=== PATIENT | male | born 1960 | race Hispanic/Latino ===

== ENCOUNTER 2017-07-12 19:33 | Emergency (ER) | payer OTHER ==
[2017-07-12 19:33] VITALS: BMI 30.8
[2017-07-12 19:57] VITALS: TEMP 98.3
[2017-07-12] MEDS ORDERED: Rabies Immune Globulin 150 INTLU/ML VIAL IM ONE ×2 (20:37→21:00)
[2017-07-12] MEDS ORDERED: RABIES VACCINE 2.5 U PDR IM ONE (20:37)
[2017-07-12] MEDS ORDERED: TDAP Vaccine 0.5 mL Syr IM ONE (20:37)
--- NOTE | 2017-07-12 20:47 | ED PDOC ---
Arrival/HPI - General Historian: Patient - History of Present Illness Time/Duration: Prior to Arrival Symptom Onset: Sudden Symptom Course: Unchanged Quality: Throbbing Severity Level: Mild <Nathalia Hernandez - Last Filed: 07/12/17 21:52> <Anupam Botello - Last Filed: 07/12/17 21:58> - General Chief Complaint: Bite Time Seen by Provider: 07/12/17 20:15 - History of Present Illness Narrative History of Present Illness (Text): 07/12/17 20:44 57M w/PMH sig for hypertension evaluated post cat bite. Pt reports he feeds an outside cat, which is currently dying of unknown causes, pt tried to move cat with resulting bite to right hand. Pt reports tetanus vaccine over 10 yrs ago. Denies N/V/F/C, shortness of breath, chest pain, ab pain, other complaints. PMH: hypertension on lisinopril 5mg QD PSH: R levator muscle rupture and repair All: NKDA SH: Denies tobacco, ETOH, or illicit drug use PMD: Condo (Nathalia Hernandez) Associated Symptoms (Text): 07/12/17 20:47 none (Nathalia Hernandez) Past Medical History - Provider Review Nursing Documentation Reviewed: Yes - Infectious Disease Hx of Infectious Diseases: None - Tetanus Immunization Tetanus Immunization: Unknown - Cardiac Hx Hypertension: Yes (borderline) Hx Pacemaker: No - Neurological Hx Paralysis: No - HEENT Other/Comment: ptosis of right eyelid - Hematological/Oncological Hx Blood Transfusions: No Hx Blood Transfusion Reaction: No - Musculoskeletal/Rheumatological Hx Musculoskeletal Disorders: No Other/Comment: C3,4,5 herniation. - Psychiatric Hx Emotional Abuse: No Hx Physical Abuse: No Hx Substance Use: No - Surgical History Other/Comment: tonsillectomy - Anesthesia Hx Anesthesia Reactions: No Hx Malignant Hyperthermia: No - Suicidal Assessment Feels Threatened In Home Enviroment: No <Nathalia Hernandez - Last Filed: 07/12/17 21:52> Family/Social History - Physician Review Nursing Documentation Reviewed: Yes Family/Social History: No Known Family HX Smoking Status: Never Smoked Hx Alcohol Use: No (socially) Hx Substance Use: No Hx Substance Use Treatment: No <Nathalia Hernandez - Last Filed: 07/12/17 21:52> Allergies/Home Meds <Nathalia Hernandez - Last Filed: 07/12/17 21:52> <Anupam Botello - Last Filed: 07/12/17 21:58> Allergies/Adverse Reactions: Allergies No Known Allergies Allergy (Verified 09/18/16 17:44) Home Medications: Home Meds Medication Instructions Recorded Confirmed Naproxen [Naprosyn] 500 mg PO PRN PRN 02/19/13 09/18/16 Lisinopril [Zestril] 5 mg PO DAILY 09/18/16 09/18/16 Review of Systems - Physician Review All systems were reviewed & negative as marked: Yes - Review of Systems Constitutional: Normal Eyes: Normal ENT: Normal Respiratory: Normal Cardiovascular: Normal Gastrointestinal: Normal Musculoskeletal: Normal Skin: Other (puncture wounds over hypotenar eminence of right hand) Neurological: Normal <Nathalia Hernandez - Last Filed: 07/12/17 21:52> Physical Exam Vital Signs Reviewed: Yes Temperature: Afebrile Blood Pressure: Hypertensive Pulse: Regular Respiratory Rate: Normal Appearance: Positive for: Well-Appearing, Non-Toxic, Comfortable Pain Distress: None Mental Status: Positive for: Alert and Oriented X 3 - Systems Exam Head: Present: Atraumatic, Normocephalic Extroacular Muscles: Present: EOMI Conjunctiva: Present: Normal Mouth: Present: Moist Mucous Membranes Nose (External): Present: Atraumatic Neck: Present: Normal Range of Motion Respiratory/Chest: Present: Clear to Auscultation, Good Air Exchange. No: Respiratory Distress, Accessory Muscle Use Cardiovascular: Present: Regular Rate and Rhythm, Normal S1, S2. No: Murmurs Abdomen: Present: Normal Bowel Sounds. No: Tenderness, Distention, Peritoneal Signs Back: Present: Normal Inspection Upper Extremity: Present: Normal Inspection. No: Cyanosis, Edema Lower Extremity: Present: Normal Inspection. No: Edema Neurological: Present: GCS=15, CN II-XII Intact, Speech Normal Skin: Present: Warm, Dry, Normal Color, Other (right hypotenar eminiance with slight tenderness, 2 small puncture wounds and slight swelling). No: Rashes Psychiatric: Present: Alert, Oriented x 3, Normal Insight, Normal Concentration <Nathalia Hernandez - Last Filed: 07/12/17 21:52> Vital Signs Temp Pulse Resp BP Pulse Ox 07/12/17 19:33 98.3 F 64 16 132/91 H 97 Medical Decision Making <Nathalia Hernandez - Last Filed: 07/12/17 21:52> <Anupam Botello - Last Filed: 07/12/17 21:58> ED Course and Treatment: 07/12/17 20:49 Pt seen/evaluated, will give tetanus booster and rabies booster, immunoglobulin. (Nathalia Hernandez) 07/12/17 21:58 Pty. seen and evaluated with the bilingual medical receptionist.Agree with HPI,clinical findings and treatment plan (Anupam Botello) - Medication Orders Current Medication Orders: Discontinued Medications Amoxicillin/Clavulanate Potassium (Augmentin 875 Mg-125 Mg Tab) 1 tab PO STAT STA PRN Reason: Protocol Stop: 07/12/17 21:29 Last Admin: 07/12/17 21:57 Dose: 1 tab Rabies Immune Globulin (Imogam) 1,994 intlu IM .ONCE ONE Stop: 07/12/17 21:01 Last Admin: 07/12/17 21:29 Dose: 1,994 intlu IM Administration Charges Document 07/12/17 21:29 JO (Rec: 07/12/17 21:32 [id number]) Injection Site MAR Injection Site Right Vastus Lateralis Charges for Administration # of IM Administrations 5 MAR Immunization Data Document 07/12/17 21:29 JOL (Rec: 07/12/17 21:32 JO [id number]) Immunization Data Vaccine Lot Number [id number] Vaccine Expiration Date 04/29/19 Site Given Right Anterolateral Thigh Route Intramuscular Rabies Vaccine Human Diploid Cell (Rabavert Vaccine Inj) 2.5 u IM .ONCE ONE Stop: 07/12/17 20:38 Last Admin: 07/12/17 21:32 Dose: 2.5 u MAR Immunization Data Document 07/12/17 21:32 JOL (Rec: 07/12/17 21:33 JO [id number]) Immunization Data Vaccine Lot Number [id number] Vaccine Expiration Date 02/24/20 Tetanus/Reduced Diphtheria/Acell Pertussis (Boostrix Vaccine Inj) 0.5 ml IM .ONCE ONE Stop: 07/12/17 20:38 Last Admin: 07/12/17 21:33 Dose: 0.5 ml MAR Immunization Data Document 07/12/17 21:33 JOL (Rec: 07/12/17 21:33 [id number]) Immunization Data Vaccine Lot Number [id number] Vaccine Expiration Date 07/20/19 Site Given Left Deltoid - PA / HOMOGENIZER OPERATOR / Resident Statement / has reviewed & agrees with the documentation as recorded. / has examined the patient and agrees with the treatment plan. <Anupam Botello - Last Filed: 07/12/17 21:58> Disposition/Present on Arrival - Present on Arrival Any Indicators Present on Arrival: No History of DVT/PE: No History of Uncontrolled Diabetes: No Urinary Catheter: No History of Decub. Ulcer: No History Surgical Site Infection Following: Orthopedic Procedures - Disposition Have Diagnosis and Disposition been Completed?: Yes Disposition Time: 20:50 Patient Plan: Discharge <Nathalia Hernandez - Last Filed: 07/12/17 21:52> <Anupam Botello - Last Filed: 07/12/17 21:58> - Disposition Diagnosis: Cat bite of hand Disposition: HOME/ ROUTINE Patient Problems: Current Active Problems Problem Status Onset Cat bite of hand Acute Condition: STABLE Discharge Instructions (ExitCare): Animal Bite (ED) Additional Instructions: Please return for additional Rabies vaccine 3 days from now, 7 days from now, 13 days from now and 28 days from now. Prescriptions: Amoxicillin/Clavulanate [Augmentin 875 MG-125 MG] 1 tab PO BID #10 tab Referrals: Mark Rg MD [Primary Care Provider] - Follow up with primary Forms: [employer] (Indonesian)
[2017-07-12] MEDS ORDERED: Amoxicillin-Clav 875-125 mg Tab PO STA (21:28)
[2017-07-13 03:28] VITALS: BP 135/87; PULSE 68; RESP 18; O2SAT 99
== END 2017-07-12 21:58 | disposition home or self-care (01) ==
LOC: ED 19:33
DX: S61.451A Open bite of right hand, initial encounter (principal); W55.01XA Bitten by cat, initial encounter; Y93.K9 Activity, other involving animal care; Y92.89 Other specified places as the place of occurrence of the external cause; Z23 Encounter for immunization

== ENCOUNTER 2017-07-15 17:36 | Emergency (ER) | payer OTHER ==
[2017-07-15 17:43] VITALS: BMI 30.2
[2017-07-15 17:48] VITALS: BP 165/90; PULSE 56; RESP 18; TEMP 98.1; O2SAT 95
--- NOTE | 2017-07-15 17:48 | ED PDOC ---
Arrival/HPI - General Time Seen by Provider: 07/15/17 17:37 Historian: Patient - History of Present Illness Narrative History of Present Illness (Text): 07/15/17 17:43 57yr old male presents today for 2nd rabies vaccine. pt was bit by cat on right hand. denies pain/fever/chills. taking abx as prescribed. pt complaining of generalized bodyaches. Past Medical History - Provider Review Nursing Documentation Reviewed: Yes - Travel History Have you recently traveled outside [place] w/in the past 3 mons?: No - Infectious Disease Hx of Infectious Diseases: None - Tetanus Immunization Tetanus Immunization: Unknown - Cardiac Hx Hypertension: Yes (borderline) Hx Pacemaker: No - Neurological Hx Paralysis: No - HEENT Other/Comment: ptosis of right eyelid - Hematological/Oncological Hx Blood Transfusions: No Hx Blood Transfusion Reaction: No - Musculoskeletal/Rheumatological Hx Musculoskeletal Disorders: No Other/Comment: C3,4,5 herniation. - Psychiatric Hx Emotional Abuse: No Hx Physical Abuse: No Hx Substance Use: No - Surgical History Other/Comment: tonsillectomy - Anesthesia Hx Anesthesia Reactions: No Hx Malignant Hyperthermia: No - Suicidal Assessment Feels Threatened In Home Enviroment: No Family/Social History - Physician Review Nursing Documentation Reviewed: Yes Family/Social History: Unknown Family HX Smoking Status: Never Smoked Hx Alcohol Use: No (socially) Hx Substance Use: No Hx Substance Use Treatment: No Allergies/Home Meds Allergies/Adverse Reactions: Allergies No Known Allergies Allergy (Verified 07/15/17 17:43) Home Medications: Home Meds Medication Instructions Recorded Confirmed Lisinopril [Zestril] 5 mg PO DAILY 09/18/16 09/18/16 Review of Systems - Review of Systems Constitutional: absent: Fatigue, Fevers Respiratory: absent: SOB, Cough Cardiovascular: absent: Chest Pain, Palpitations Gastrointestinal: absent: Abdominal Pain Musculoskeletal: Other (bodyaches). absent: Arthralgias Skin: Other (cat bite) Physical Exam Vital Signs Reviewed: Yes Blood Pressure: Hypertensive Pulse: Regular Respiratory Rate: Normal Appearance: Positive for: Well-Appearing, Non-Toxic, Comfortable Pain Distress: None Mental Status: Positive for: Alert and Oriented X 3 - Systems Exam Head: Present: Atraumatic Respiratory/Chest: Present: Clear to Auscultation Cardiovascular: Present: Regular Rate and Rhythm Upper Extremity: Present: Normal ROM, NORMAL PULSES, Neurovascularly Intact, Capillary Refill < 2s, Other (3 small puncture wounds noted to the volar aspect of the hand at the thenar eminence; no erythema; no edema. no tenderness. ). No : Tenderness, Swelling, Erythema, Deformity Neurological: Present: GCS=15, Speech Normal Skin: Present: Warm, Dry Psychiatric: Present: Alert, Oriented x 3 Medical Decision Making ED Course and Treatment: 07/15/17 17:44 Patient is nontoxic well-appearing in no distress. Vital signs are stable. presenting for 2nd rabies vaccine. denies any complaints. no signs of infection. Patient was advised to keep the wound clean and dry, apply bacitracin twice daily, take antibiotics as prescribed and return immediately if symptoms worsen persist or if new symptoms develop. pt was advised to return on july 19 and july 26 f Impression: cat bite Continue antibiotics as prescribed Keep the wound clean and dry, apply bacitracin twice daily return on july 19 and july 26 for the remainder of your rabies vaccine schedule. Return immediately if symptoms worsen persist or if new symptoms develop: High fevers, increasing pain, increasing redness, swelling or if any other concerning symptoms develop. Disposition/Present on Arrival - Present on Arrival Any Indicators Present on Arrival: No History of DVT/PE: No History of Uncontrolled Diabetes: No Urinary Catheter: No History Surgical Site Infection Following: Orthopedic Procedures - Disposition Have Diagnosis and Disposition been Completed?: Yes Diagnosis: Cat bite, Rabies, need for prophylactic vaccination against Disposition: HOME/ ROUTINE Disposition Time: 17:49 Patient Plan: Discharge Patient Problems: Current Active Problems Problem Status Onset Cat bite Acute Rabies, need for prophylactic vaccination against Acute Condition: GOOD Discharge Instructions (ExitCare): Animal Bite (ED) Additional Instructions: Continue antibiotics as prescribed Keep the wound clean and dry, apply bacitracin twice daily return on july 19 and july 26 for the remainder of your rabies vaccine schedule. Return immediately if symptoms worsen persist or if new symptoms develop: High fevers, increasing pain, increasing redness, swelling or if any other concerning symptoms develop. Referrals: Mark Rg MD [Staff Provider] - Follow up with primary
[2017-07-15] MEDS ORDERED: RABIES VACCINE 2.5 U PDR IM ONE ×2 (17:53→18:30)
== END 2017-07-15 18:50 | disposition home or self-care (01) ==
LOC: ED 17:36
DX: S61.451D Open bite of right hand, subsequent encounter (principal); W55.01XD Bitten by cat, subsequent encounter; Z23 Encounter for immunization

== ENCOUNTER 2017-07-19 17:58 | Emergency (ER) | payer OTHER ==
[2017-07-19 17:59] VITALS: BMI 30.2
[2017-07-19 18:06] VITALS: BP 157/98; PULSE 68; RESP 16; TEMP 98.1; O2SAT 95
[2017-07-19] MEDS ORDERED: RABIES VACCINE 2.5 U PDR IM ONE (18:13)
--- NOTE | 2017-07-19 18:20 | ED PDOC ---
Arrival/HPI - General Chief Complaint: Rabies Vaccine Series Time Seen by Provider: 07/19/17 18:06 Historian: Patient - History of Present Illness Narrative History of Present Illness (Text): 07/19/17 18:20 57-year-old male presents today for his third rabies vaccine. Patient states he has completed his antibiotics. Patient denies pain fevers or chills. Patient states he is having intermittent body aches which have since improved from his last visit. Patient denies any pain at present time. No chest pain or shortness of breath. Past Medical History - Provider Review Nursing Documentation Reviewed: Yes - Travel History Have you recently traveled outside [place] w/in the past 3 mons?: No - Infectious Disease Hx of Infectious Diseases: None - Tetanus Immunization Tetanus Immunization: Unknown - Cardiac Hx Cardiac Disorders: Yes Hx Hypertension: Yes (borderline) Hx Pacemaker: No - Pulmonary Hx Respiratory Disorders: No - Neurological Hx Alzheimer's Disease: No Hx Paralysis: No - HEENT Hx HEENT Disorder: Yes Other/Comment: ptosis of right eyelid - Renal Hx Renal Disorder: No - Endocrine/Metabolic Hx Endocrine Disorders: No - Hematological/Oncological Hx Blood Transfusions: No Hx Blood Transfusion Reaction: No - Integumentary Hx Dermatological Disorder: No - Musculoskeletal/Rheumatological Hx Musculoskeletal Disorders: Yes Other/Comment: C3,4,5 herniation. - Gastrointestinal Hx Gastrointestinal Disorders: No - Genitourinary/Gynecological Hx Genitourinary Disorders: No - Psychiatric Hx Psychophysiologic Disorder: No Hx Emotional Abuse: No Hx Physical Abuse: No Hx Substance Use: No - Surgical History Hx Eye Surgery: Yes Other/Comment: tonsillectomy - Anesthesia Hx Anesthesia Reactions: No Hx Malignant Hyperthermia: No - Suicidal Assessment Feels Threatened In Home Enviroment: No Family/Social History - Physician Review Nursing Documentation Reviewed: Yes Family/Social History: Unknown Family HX Smoking Status: Never Smoked Hx Alcohol Use: No (socially) Hx Substance Use: No Hx Substance Use Treatment: No Allergies/Home Meds Allergies/Adverse Reactions: Allergies No Known Allergies Allergy (Verified 07/15/17 17:43) Home Medications: Home Meds Medication Instructions Recorded Confirmed Lisinopril [Zestril] 5 mg PO DAILY 09/18/16 07/19/17 Review of Systems - Review of Systems Constitutional: Other (bodyaches). absent: Fatigue, Fevers Respiratory: absent: SOB, Cough Cardiovascular: absent: Chest Pain, Palpitations Gastrointestinal: absent: Abdominal Pain, Nausea, Vomiting Musculoskeletal: absent: Arthralgias, Back Pain, Neck Pain Skin: absent: Rash, Pruritis Neurological: absent: Headache, Dizziness Physical Exam Vital Signs Reviewed: Yes Vital Signs Temp Pulse Resp BP Pulse Ox 07/19/17 18:06 98.1 F 68 16 157/98 H 95 Temperature: Afebrile Blood Pressure: Hypertensive Pulse: Regular Respiratory Rate: Normal Appearance: Positive for: Well-Appearing, Non-Toxic, Comfortable Pain Distress: None Mental Status: Positive for: Alert and Oriented X 3 - Systems Exam Head: Present: Atraumatic Respiratory/Chest: Present: Clear to Auscultation Cardiovascular: Present: Regular Rate and Rhythm Upper Extremity: Present: Normal ROM, Neurovascularly Intact, Capillary Refill < 2s. No: Tenderness, Swelling, Erythema Skin: Present: Warm, Dry Psychiatric: Present: Alert, Oriented x 3 Medical Decision Making ED Course and Treatment: 07/19/17 18:16 Patient is nontoxic well-appearing in no distress. Vital signs are stable. presenting for 3rd rabies vaccine. denies any complaints at present time. no signs of infection. Patient was advised to keep the wound clean and dry, apply bacitracin twice daily, take antibiotics as prescribed and return immediately if symptoms worsen persist or if new symptoms develop. pt was advised to return on july 26 for the completion of his rabies vaccine series. Impression: cat bite Keep the wound clean and dry, apply bacitracin twice daily return on july 26 for the remainder of your rabies vaccine schedule. Return immediately if symptoms worsen persist or if new symptoms develop: High fevers, increasing pain, increasing redness, swelling or if any other concerning symptoms develop. - Medication Orders Current Medication Orders: Rabies Vaccine Human Diploid Cell (Rabavert Vaccine Inj) 2.5 u IM .ONCE ONE Stop: 07/19/17 18:14 Disposition/Present on Arrival - Present on Arrival Any Indicators Present on Arrival: No History of DVT/PE: No History of Uncontrolled Diabetes: No Urinary Catheter: No History of Decub. Ulcer: No History Surgical Site Infection Following: Orthopedic Procedures - Disposition Have Diagnosis and Disposition been Completed?: Yes Diagnosis: Cat bite, Rabies, need for prophylactic vaccination against Disposition: HOME/ ROUTINE Disposition Time: 18:17 Patient Plan: Discharge Condition: GOOD Additional Instructions: Keep the wound clean and dry, apply bacitracin twice daily return on july 26 for your last of your rabies vaccine schedule. Return immediately if symptoms worsen persist or if new symptoms develop: High fevers, increasing pain, increasing redness, swelling or if any other concerning symptoms develop. Referrals: Mark Rg MD [Staff Provider] - Follow up with primary
== END 2017-07-19 18:41 | disposition home or self-care (01) ==
LOC: ED 17:58
DX: Z23 Encounter for immunization (principal)

== ENCOUNTER 2017-07-26 17:57 | Emergency (ER) | payer OTHER ==
[2017-07-26 17:57] VITALS: BMI 30.2
[2017-07-26 18:40] VITALS: BP 156/93
[2017-07-26 18:42] VITALS: TEMP 98.7
[2017-07-26 18:43] VITALS: PULSE 78; RESP 18
[2017-07-26] MEDS ORDERED: RABIES VACCINE 2.5 U PDR IM ONE (18:45)
--- NOTE | 2017-07-26 18:47 | ED PDOC ---
Arrival/HPI - General Chief Complaint: Abnormal Skin Integrity Time Seen by Provider: 07/26/17 18:45 Historian: Patient - History of Present Illness Narrative History of Present Illness (Text): 07/26/17 19:25 A 57 year old male presents to the emergency department for last rabies vaccine. Patient was bit on right hand, completely healed wound. Denies any pain , redness or swelling. Patient denies any other complaints at this time. PMD: Dr. Rg Symptom Onset: Sudden Activities at Onset: Rest Modifying Factors (Text): none Associated Symptoms (Text): none Past Medical History - Provider Review Nursing Documentation Reviewed: Yes - Infectious Disease Hx of Infectious Diseases: None - Tetanus Immunization Tetanus Immunization: Unknown - Cardiac Hx Cardiac Disorders: Yes Hx Hypertension: Yes (borderline) Hx Pacemaker: No - Pulmonary Hx Respiratory Disorders: No - Neurological Hx Alzheimer's Disease: No Hx Paralysis: No - HEENT Hx HEENT Disorder: Yes Other/Comment: ptosis of right eyelid - Renal Hx Renal Disorder: No - Endocrine/Metabolic Hx Endocrine Disorders: No - Hematological/Oncological Hx Blood Transfusions: No Hx Blood Transfusion Reaction: No - Integumentary Hx Dermatological Disorder: No - Musculoskeletal/Rheumatological Hx Musculoskeletal Disorders: Yes Other/Comment: C3,4,5 herniation. - Gastrointestinal Hx Gastrointestinal Disorders: No - Genitourinary/Gynecological Hx Genitourinary Disorders: No - Psychiatric Hx Psychophysiologic Disorder: No Hx Emotional Abuse: No Hx Physical Abuse: No Hx Substance Use: No - Surgical History Hx Eye Surgery: Yes Other/Comment: tonsillectomy - Anesthesia Hx Anesthesia Reactions: No Hx Malignant Hyperthermia: No - Suicidal Assessment Feels Threatened In Home Enviroment: No Family/Social History - Physician Review Nursing Documentation Reviewed: Yes Family/Social History: No Known Family HX Smoking Status: Never Smoked Hx Alcohol Use: No (socially) Hx Substance Use: No Hx Substance Use Treatment: No Allergies/Home Meds Allergies/Adverse Reactions: Allergies No Known Allergies Allergy (Verified 07/15/17 17:43) Home Medications: Home Meds Medication Instructions Recorded Confirmed Lisinopril [Zestril] 5 mg PO DAILY 09/18/16 07/26/17 Review of Systems - Physician Review All systems were reviewed & negative as marked: Yes - Review of Systems Constitutional: Normal Eyes: Normal ENT: Normal Respiratory: Normal Cardiovascular: Normal Gastrointestinal: Normal Genitourinary Male: Normal Musculoskeletal: Normal Skin: Normal Neurological: Normal Endocrine: Normal Hemo/Lymphatic: Normal Psychiatric: Normal Physical Exam Vital Signs Reviewed: Yes Vital Signs Temp Pulse Resp BP Pulse Ox 07/26/17 19:07 18 99 07/26/17 18:43 98.7 F 78 18 97 07/26/17 18:30 98.7 F 75 16 156/93 H 99 Temperature: Afebrile Blood Pressure: Hypertensive Pulse: Regular Respiratory Rate: Normal Appearance: Positive for: Well-Appearing, Non-Toxic, Comfortable Pain Distress: None Mental Status: Positive for: Alert and Oriented X 3 - Systems Exam Head: Present: Atraumatic, Normocephalic Pupils: Present: PERRL Extroacular Muscles: Present: EOMI Conjunctiva: Present: Normal Mouth: Present: Moist Mucous Membranes Neck: Present: Normal Range of Motion Back: Present: Normal Inspection Upper Extremity: Present: Normal Inspection. No: Cyanosis, Edema Lower Extremity: Present: Normal Inspection. No: Edema Neurological: Present: GCS=15, CN II-XII Intact, Speech Normal Skin: Present: Warm, Dry, Normal Color, Other (completely healed wound thenar aspect of right hand). No: Rashes Psychiatric: Present: Alert, Oriented x 3, Normal Insight, Normal Concentration Medical Decision Making ED Course and Treatment: 07/26/17 19:27 Impression: A 57 year old male here in emergency department for last rabies vaccine. Patient has healed wound at thenar aspect of the right hand. Plan: -- Rabies vaccine -- Reassess and disposition Prior Visits: Notes and results from previous visits were reviewed. Patient was last seen in the emergency department on 07/19/17 for third rabies vaccine. Progress Notes: Patient was given rabies vaccine, feels better and is in agreement with plan to be discharged home. Patient is stable for discharge. Patient was instructed to follow up with physician or return if symptoms worsen or new concerning symptoms arise. - Medication Orders Current Medication Orders: Discontinued Medications Rabies Vaccine Human Diploid Cell (Rabavert Vaccine Inj) 2.5 u IM .ONCE ONE Stop: 07/26/17 18:46 Last Admin: 07/26/17 19:05 Dose: 2.5 u MAR Immunization Data Document 07/26/17 19:05 [email or web address] (Rec: 07/26/17 19:06 [id number]) Immunization Data Vaccine Lot Number [id number] Vaccine Expiration Date 12/05/20 Site Given Left Deltoid Route Intramuscular Immunization Units ml - PA / BIOMASS PRODUCTION MANAGER / Resident Statement MD/DO has reviewed & agrees with the documentation as recorded. - Scribe Statement The provider has reviewed the documentation as recorded by the Scribe Glenn Madrigal Provider Scribe Attestation: All medical record entries made by the Scribe were at my direction and personally dictated by me. I have reviewed the chart and agree that the record accurately reflects my personal performance of the history, physical exam, medical decision making, and the department course for this patient. I have also personally directed, reviewed, and agree with the discharge instructions and disposition. Disposition/Present on Arrival - Present on Arrival Any Indicators Present on Arrival: No History of DVT/PE: No History of Uncontrolled Diabetes: No Urinary Catheter: No History of Decub. Ulcer: No History Surgical Site Infection Following: Orthopedic Procedures - Disposition Have Diagnosis and Disposition been Completed?: Yes Diagnosis: Need for rabies vaccination Disposition: HOME/ ROUTINE Disposition Time: 18:46 Patient Plan: Discharge Condition: STABLE Discharge Instructions (ExitCare): Rabies Vaccine (ED) Print Language: [place]THER[place] IRISH Forms: [employer] (Mongolian)
[2017-07-26 19:08] VITALS: O2SAT 99
== END 2017-07-26 19:08 | disposition home or self-care (01) ==
LOC: ED 17:57
DX: Z23 Encounter for immunization (principal)